=== PATIENT | female | born 1980 | race Caucasian/White ===

== ENCOUNTER 2017-10-31 05:37 | Inpatient (IN) | payer MEDICAID ==
[2017-10-31] MEDS ORDERED: Ondansetron 4 MG/2 ML SDV IVPUSH PRN (07:07)
[2017-10-31] MEDS ORDERED: Sodium Chloride 0.9% 10 ML Syringe FLUSH PRN (07:07)
[2017-10-31] MEDS ORDERED: Misoprostol 100 MCG Tab VAG PRN (07:07)
[2017-10-31] MEDS ORDERED: Acetaminophen 325 MG Tab PO PRN (07:07)
[2017-10-31] MEDS ORDERED: Nalbuphine 20 MG/1 ML Amp IVPUSH PRN (07:07)
--- NOTE | 2017-10-31 07:12 | PCM.LDHP ---
L&D History of Present Illness - General Date of Service: 10/31/17 Admit Problem/Dx: Patient Status Order with Admit Dx/Problem 10/31/17 07:09 Patient Status [ADT] Routine Admission Diagnosis/Problem Admission Diagnosis/Problem Gestational hypertension Source of Information: Patient History Limitations: Reports: No Limitations - History of Present Illness Introduction:: Patient is a 37 y/o at 37 0/7 wks gestation who presented today for planned IOL for preeclampsia. Has been doing well. No headaches, vision changes, RUQ pain. Only concern is that starting Tuesday she began to notice the start of a HSV outbreak. Has very typical symptoms for her. Believes still present. 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 (Approximate): Psychiatric History: Reports: Addiction - Infectious Disease History Infectious Disease History: Reports: Herpes Social & Family History - Tobacco Use Smoking Status *Q: Current Every Day Smoker - Alcohol Use Alcohol Use History: No - Recreational Drug Use Recreational Drug Use: Yes Drug Use in Last 12 Months: Yes Recreational Drug Type: Reports: Methamphetamine H&P Review of Systems - Review of Systems: Review Of Systems: See Below General: Reports: No Symptoms Pulmonary: Reports: No Symptoms Cardiovascular: Reports: No Symptoms Gastrointestinal: Reports: No Symptoms Genitourinary: Reports: Other (burning/tingling of HSV) Musculoskeletal: Reports: No Symptoms Psychiatric: Reports: No Symptoms Neurological: Reports: No Symptoms L&D Exam - Exam Exam: See Below - OB Specific Contraction Intensity: Irritability Movement: Active Heart Tones: Present Heart Tones per Min: 135 Heart Rate (FHR) Variability: Moderate (6-25 bmp) Presentation: Vertex - Exam General: Alert, Oriented, Cooperative Lungs: Clear to Auscultation, Normal Respiratory Effort Cardiovascular: Regular Rate, Regular Rhythm GI/Abdominal Exam: Soft, Non-Tender Genitourinary: Vaginal lesions (on left labia has findings of HSV lesion) Extremities: Normal Inspection Skin: Warm, Dry, Intact - Patient Data Result Diagrams: 10/31/17 07:20 - Problem List (1) 37 weeks gestation of SNOMED Code(s): 56090831 ICD Code: Z3A.37 - 37 WEEKS GESTATION OF Status: Acute Current Visit: Yes (2) induced hypertension SNOMED Code(s): 83134104 ICD Code: O13.9 - GESTATIONAL HTN W/O SIGNIFICANT PROTEINURIA, UNSP TRIMESTER Status: Acute Current Visit: Yes Qualifiers: Trimester: third trimester Qualified Code(s): O13.3 - Gestational [ -induced] hypertension without significant proteinuria, third trimester (3) Rh negative state in antepartum period SNOMED Code(s): 718579443 ICD Code: O09.899 - SUPERVISION OF OTHER HIGH RISK PREGNANCIES, UNSP TRIMESTER; Z67.91 - UNSPECIFIED BLOOD TYPE, RH NEGATIVE Status: Acute Current Visit: Yes (4) HSV infection Status: Acute Current Visit: Yes Problem List Initiated/Reviewed/Updated: Yes Orders Last 24hrs: Active Orders 24 hr Category Date Time Status Patient Status [ADT] Routine ADT 10/31/17 07:09 Ordered Activity as Tolerated [RC] PFP Care 10/31/17 07:07 Ordered Communication Order [RC] ASDIRECTED Care 10/31/17 07:07 Ordered Communication Order [RC] ASDIRECTED Care 10/31/17 07:07 Ordered Communication Order [RC] ASDIRECTED Care 10/31/17 07:07 Ordered Heart Tones [RC] ASDIRECTED Care 10/31/17 07:10 Ordered Monitoring [RC] INTERMITTENT Care 10/31/17 07:07 Ordered Notify Provider [RC] ASDIRECTED Care 10/31/17 07:07 Ordered Notify Provider [RC] PRN Care 10/31/17 07:07 Ordered Peripheral IV Care [RC] . DIRECTED Care 10/31/17 07:10 Ordered Up ad Shari [RC] ASDIRECTED Care 10/31/17 07:07 Ordered Vaginal Exam [RC] ASDIRECTED Care 10/31/17 07:07 Ordered Vital Signs [RC] ASDIRECTED Care 10/31/17 07:07 Ordered Vital Signs [RC] PER UNIT ROUTINE Care 10/31/17 07:07 Ordered Regular Diet [DIET] Diet 10/31/17 Breakfast Ordered ALANINE AMINOTRANSFERASE,ALT [CHEM] Routine Lab 10/31/17 07:07 Ordered ASPARTATE AMNIOTRANSFERASE,AST [CHEM] Routine Lab 10/31/17 07:07 Ordered CBC W/O DIFF,HEMOGRAM [HEME] Routine Lab 10/31/17 07:07 Ordered CREATININE W/GFR [CHEM] Routine Lab 10/31/17 07:07 Ordered DRUG SCREEN, URINE [URCHEM] Routine Lab 10/31/17 07:07 Ordered TYPE AND SCREEN [BBK] Routine Lab 10/31/17 07:07 Ordered Acetaminophen [Tylenol] Med 10/31/17 07:07 Ordered 650 mg PO Q4H PRN Lactated Ringers [Ringers, Lactated] 1,000 ml Med 10/31/17 07:15 Ordered IV ASDIRECTED Misoprostol [Cytotec] Med 10/31/17 07:07 Ordered 25 mcg VAG Q4H PRN Nalbuphine [Nubain] Med 10/31/17 07:07 Ordered 10 mg IVPUSH Q2H PRN Ondansetron [Zofran] Med 10/31/17 07:07 Ordered 4 mg IVPUSH Q4H PRN Oxytocin/Lactated Ringers [Pitocin in LR 10 Units/1,000 Med 10/31/17 07:15 Ordered ML] 10 unit in 1,000 ml IV .CONTINUOUS Sodium Chloride 0.9% [Saline Flush] Med 10/31/17 07:07 Ordered 10 ml FLUSH ASDIRECTED PRN Electronic Heart Tones Ext w TOCO [WOMSER] Oth 10/31/17 07:07 Ordered Routine Peripheral IV Insertion Adult [OM.PC] Routine Oth 10/31/17 07:07 Ordered Resuscitation Status Routine Resus Stat 10/31/17 07:07 Ordered Assessment/Plan Comment:: 37 y/o woman at 37 0/7 wks presented today for planned IOL for preeclampsia , however, has findings of active HSV outbreak. Given risks to baby will not proceed with IOL, but instead proceed with PLTCS. * CBC, T&S, RPR * AST, ALT, Creatinine * UDS * Cord segment on baby * NPO * Anecef OCTOR * Will assess baby blood type after delivery to see if Rhogam required Aliyah Reynolds MD
[2017-10-31] MEDS ORDERED: Misoprostol 25 MCG (1/4 of 100 MCG) Tab ONE (07:13)
[2017-10-31] MEDS ORDERED: Lactated Ringers 1,000 ML IV SCH ×2 (07:15→14:37)
[2017-10-31] MEDS ORDERED: Oxytocin/Lactated Ringers 10 UNIT/1,000 ML BAG IV SCH (07:15)
[2017-10-31] MEDS ORDERED: ceFAZolin 2 GM in Premix Bag 1 BAG IV ONE (07:24)
[2017-10-31] MEDS ORDERED: ceFAZolin 1 GM in Premix Bag 1 BAG IV ONE (07:24)
[2017-10-31] MEDS ORDERED: Metoclopramide 10 MG/2 ML SDV IVPUSH ONE (07:24)
[2017-10-31] MEDS ORDERED: Citric Acid/Sodium Citrate Solution 30 ML Cup PO ONE (07:24)
[2017-10-31] MEDS ORDERED: Nalbuphine 20 MG/ML 1 ML Syringe IVPUSH PRN (07:30)
--- NOTE | 2017-10-31 08:35 | PCM.OPNOTE ---
- General Post-Op/Procedure Note Date of Surgery/Procedure: 10/31/17 Operative Procedure(s): Primary Low Transverse Findings: Normal appearance of the uterus, fallopian tubes, and ovaries bilaterally. Baby boy with weight of 5 lbs 15 oz. Apgars of 7 & 8 Pre Op Diagnosis: 37 weeks gestation. Preeclampsia. HSV outbreak Post-Op Diagnosis: Same Anesthesia Technique: Spinal Primary Surgeon: Aliyah Reynolds Secondary Surgeon: Antoine Quiroga Anesthesia Provider: Ham Ramon Reason Telephone Instrument Supervisor Was Necessary: Patient with BMI of 49. Speed/safety of case Pathology: Cord blood collected. Placenta discarded Fluid Replacement, Intraop: 2,600 Output, Urine Amount: 106 EBL in mLs: 750 Complications: None Condition: Good Free Text/Narrative:: The risks, benefits, indications, potential complications, and alternatives were explained to the patient and informed consent obtained. After induction of anesthesia, the patient was placed in a supine position and then draped and prepped in the usual sterile manner. A Pfannenstiel incision was made and carried down through the subcutaneous tissue to the fascia. Fascial incision was made and extended transversely. The fascia was from the underlying rectus tissue superiorly and inferiorly. The peritoneum was identified and entered. Peritoneal incision was extended longitudinally. The utero-vesical peritoneal reflection was incised transversely and the bladder flap was bluntly freed from the lower uterine segment. A low transverse uterine incision was made sharply with a scalpel and extended bluntly in a cephalocaudad direction. A baby boy was delivered from a vertex presentation with aid of vacuum extraction. APGARS as above. After the umbilical cord was clamped and cut cord blood was obtained for evaluation. The placenta was removed intact and appeared normal. The uterus was exteriorized and cleared of clots. The uterine outline, tubes and ovaries appeared normal other than some slight bleeding from the fimbria of the left tube. The uterine incision was closed with running locked sutures of 0 Vicryl. Hemostasis was obtained with a second imbricating layer of 0 vicryl. Next, area of bleeding over the left fallopian tube was controlled with a suture of 4-0 monocryl placed in a figure of eight fashion. The uterus was then placed back into the abdomen. The infracolic gutters were cleared of blood clots. The fascia was then reapproximated with running sutures of 0 Vicryl. The sucutaneous tissue was irrigated with sterile warm normal saline, hemostasis obtained with cautery. This layer was also closed with a running 0 vicryl. The skin was reapproximated with running Subcuticular 4-0 monocryl sutures. Instrument, sponge, and needle counts were correct prior the abdominal closure and at the conclusion of the case.
[2017-10-31] MEDS ORDERED: Famotidine 20 MG/2 ML SDV IVPUSH ONE (08:44)
--- NOTE | 2017-10-31 09:20 | PCM.PREANE ---
Preanesthetic Assessment - Procedure Proposed Procedure: C Section - Anesthesia/Transfusion/Family Hx Anesthesia History: No Prior Anesthesia Family History of Anesthesia Reaction: No Transfusion History: No Prior Transfusion(s) Intubation History: Unknown - Review of Systems General: No Symptoms Pulmonary: Cough, Other (Smoker 1 pack per day right now) Cardiovascular: No Symptoms, Other ( inducted hypertension) Gastrointestinal: No Symptoms Neurological: Numbness, Tingling (Bilateral hands) Other: Reports: None - Physical Assessment NPO Status Date: 10/31/17 NPO Status Time: 06:30 Pulse: 98 O2 Sat by Pulse Oximetry: 96 Respiratory Rate: 20 Blood Pressure: 133/85 Height: 1.63 m Weight: 130.635 kg ASA Class: 2 Mental Status: Alert & Oriented x3 Airway Class: Mallampati = 1 Dentition: Reports: Missing Tooth/Teeth Thyro-Mental Finger Breadths: 3 Mouth Opening Finger Breadths: 3 ROM/Head Extension: Full Lungs: Clear to Auscultation, Normal Respiratory Effort Cardiovascular: Regular Rate, Regular Rhythm - Lab Values: Laboratory Last Values WBC 13.99 K/mm3 (3.98-10.04) H 10/31/17 07:20 RBC 4.40 M/mm3 (3.98-5.22) 10/31/17 07:20 Hgb 12.8 gm/L (11.2-15.7) 10/31/17 07:20 Hct 39.2 % (34.1-44.9) 10/31/17 07:20 MCV 89.1 fl (79.4-94.8) 10/31/17 07:20 MCH 29.1 pg (25.6-32.2) 10/31/17 07:20 MCHC 32.7 g/dl (32.2-35.5) 10/31/17 07:20 RDW Std Deviation 48.0 fL (36.4-46.3) H 10/31/17 07:20 Plt Count 297 K/mm3 (182-369) 10/31/17 07:20 MPV 8.9 fl (9.4-12.3) L 10/31/17 07:20 Creatinine 0.6 mg/dL (0.55-1.02) 10/31/17 07:20 Est Cr Clr Drug Dosing TNP 10/31/17 07:20 Estimated GFR (MDRD) > 60 mL/min (>60) 10/31/17 07:20 AST 12 U/L (15-37) L 10/31/17 07:20 ALT 22 U/L (14-59) 10/31/17 07:20 - Allergies Allergies/Adverse Reactions: Allergies Allergy/AdvReac Type Severity Reaction Status Date / Time leigha's wort Allergy Hives Uncoded 09/03/15 10:41 - Blood Blood Available: Yes Product(s) Available: PRBC - Acknowledgements Anesthesia Type Planned: Spinal Pt an Appropriate Candidate for the Planned Anesthesia: Yes Alternatives and Risks of Anesthesia Discussed w Pt/Guardian: Yes Pt/Guardian Understands and Agrees with Anesthesia Plan: Yes PreAnesthesia Questionnaire - Past Health History Medical/Surgical History: Denies 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: Psychiatric History: Reports: Addiction - Infectious Disease History Infectious Disease History: Reports: Herpes - SUBSTANCE USE Smoking Status *Q: Current Every Day Smoker Recreational Drug Use History: Yes Recreational Drug Type: Reports: Methamphetamine - HOME MEDS Home Medications: Home Meds PNV95/Ferrous Fumarate/FA [ Tablet] 1 each PO DAILY 09/29/17 [History] Acyclovir 400 mg PO TID 10/31/17 [History] - CURRENT (IN HOUSE) MEDS Current Meds: Current Medications Acetaminophen (Tylenol) 650 mg PO Q4H PRN PRN Reason: Pain (Mild 1-3) and fever Lactated Ringer's (Ringers, Lactated) 1,000 mls @ 40 mls/hr IV ASDIRECTED ALEXANDREA Last Admin: 10/31/17 09:09 Dose: 999 mls/hr Oxytocin/Lactated Ringer's (Pitocin In Lr 10 Units/1,000 Ml) 10 unit in 1,000 mls @ 500 mls/hr IV .CONTINUOUS ALEXANDREA Nalbuphine HCl (Nubain) 10 mg IVPUSH Q2H PRN PRN Reason: Pain (moderate 4-6) Ondansetron HCl (Zofran) 4 mg IVPUSH Q4H PRN PRN Reason: Nausea/Vomiting Sodium Chloride (Saline Flush) 10 ml FLUSH ASDIRECTED PRN PRN Reason: Keep Vein Open Discontinued Medications Citric Acid/Sodium Citrate (Bicitra Solution) 30 ml PO ONETIME ONE Stop: 10/31/17 07:25 Famotidine (Pepcid) 20 mg IVPUSH ONETIME ONE Stop: 10/31/17 08:45 Last Admin: 10/31/17 09:10 Dose: 20 mg Cefazolin Sodium/Dextrose 2 gm (/ Premix) 50 mls @ 100 mls/hr IV ONETIME ONE Stop: 10/31/17 07:53 Cefazolin Sodium/Dextrose 1 gm (/ Premix) 50 mls @ 100 mls/hr IV ONETIME ONE Stop: 10/31/17 07:53 Metoclopramide HCl (Reglan) 10 mg IVPUSH ONETIME ONE Stop: 10/31/17 07:25 Misoprostol (Cytotec) 25 mcg VAG Q4H PRN PRN Reason: cervical ripening Misoprostol (Cytotec) Confirm Administered Dose 25 mcg .ROUTE .STK-MED ONE Stop: 10/31/17 07:14 Nalbuphine HCl (Nubain) 10 mg IVPUSH Q2H PRN PRN Reason: Pain (moderate 4-6)
[2017-10-31] MEDS ORDERED: Metoclopramide 10 MG/2 ML SDV ONE (10:01)
[2017-10-31] MEDS ORDERED: Labetalol 100 MG/20 ML MDV IVPUSH ONE (10:03)
--- NOTE | 2017-10-31 10:26 | PCM.SN ---
- Free Text/Narrative Note: While awaiting surgery time patient with findings of severe range BP's. Order given for 20 mg IV labetalol. Will plan for IV magnesium as well for now findings of severe disease. Aliyah Reynolds MD
[2017-10-31] MEDS ORDERED: Citric Acid/Sodium Citrate Solution 30 ML Cup ONE (12:14)
[2017-10-31] MEDS ORDERED: Lidocaine 1% 2 ML ONE (12:24)
[2017-10-31] MEDS ORDERED: Bupivacaine 0.75%/D5W 2 ML Amp ONE (12:24)
[2017-10-31] MEDS ORDERED: Morphine PF 10 MG/10 ML SDV ONE (12:29)
[2017-10-31] MEDS ORDERED: Phenylephrine/Normal Saline 100 MCG/ML 10 ML Syringe ONE (12:41)
[2017-10-31] MEDS ORDERED: ceFAZolin 1 GM Vial ONE (12:42)
[2017-10-31] MEDS ORDERED: Ketorolac 30 MG/ML SDV ONE (12:55)
[2017-10-31] MEDS ORDERED: Oxytocin 10 Units/1 ML SDV ONE (12:55)
[2017-10-31] MEDS ORDERED: Lactated Ringers 1,000 ML ONE ×2 (13:17)
--- NOTE | 2017-10-31 13:40 | PCM.POSTAN ---
POST ANESTHESIA ASSESSMENT - MENTAL STATUS Mental Status: Alert, Oriented - VITAL SIGNS Pulse Rate: 99 SaO2: 94 Resp Rate: 19 Blood Pressure: 128/82 Temperature: 36.2 C - RESPIRATORY Respiratory Status: Respiratory Rate WNL, Airway Patent, O2 Saturation Stable, Supplemental Oxygen - CARDIOVASCULAR CV Status: Pulse Rate WNL, Blood Pressure Stable - GASTROINTESTINAL GI Status: No Symptoms - PAIN Pain Score: 0 - POST OP HYDRATION Hydration Status: Adequate & Stable - OBSERVATIONS Free Text/Narrative:: no anesthesia complications noted
[2017-10-31] MEDS ORDERED: Magnesium Sulfate/Water 40 GM/1,000 ML BAG IV SCH (14:37)
[2017-10-31] MEDS ORDERED: Ondansetron 4 MG/2 ML SDV IV PRN (14:37)
[2017-10-31] MEDS ORDERED: Calcium Gluconate 10% 1 GM/10 ML SDV IV PRN (14:37)
[2017-10-31] MEDS ORDERED: Lanolin 100% Cream 7 GM Tube TOP PRN (14:37)
[2017-10-31] MEDS ORDERED: Docusate Sodium 100 MG Cap PO PRN (14:37)
[2017-10-31] MEDS ORDERED: Naloxone 0.4 MG/ML SDV IVPUSH PRN (14:37)
[2017-10-31] MEDS: Nicotine 21 MG/24 Hr Patch TRDERM SCH (17:47)
[2017-10-31] MEDS: Ketorolac 30 MG/ML SDV IVPUSH SCH (19:52)
[2017-11-01] MEDS: Ketorolac 30 MG/ML SDV IVPUSH SCH ×2 (02:07→08:22)
--- NOTE | 2017-11-01 07:24 | PCM.PNPP ---
- General Info Date of Service: 11/01/17 Functional Status: Reports: Pain Controlled, Tolerating Diet, Ambulating - Review of Systems General: Reports: No Symptoms Pulmonary: Reports: No Symptoms Cardiovascular: Reports: No Symptoms Gastrointestinal: Reports: Abdominal Pain (managed with medications) Genitourinary: Reports: No Symptoms Musculoskeletal: Reports: No Symptoms Neurological: Reports: No Symptoms - Patient Data Vital Signs - Most Recent: Last Vital Signs Temp 36.6 C 11/01/17 03:47 Pulse 103 H 11/01/17 06:20 Resp 19 11/01/17 06:20 BP 115/63 11/01/17 06:20 Pulse Ox 95 11/01/17 06:20 Weight - Most Recent: 130.635 kg I&O - Last 24 Hours: Intake & Output 10/31/17 11/01/17 11/01/17 22:59 06:59 14:59 Intake Total 1700 1840 Output Total 950 1965 Balance 750 -125 Lab Results - Last 24 Hours: Laboratory Results - last 24 hr 10/31/17 10/31/17 10/31/17 Range/Units 07:20 07:20 07:20 WBC 13.99 H (3.98-10.04) K/mm3 RBC 4.40 (3.98-5.22) M/mm3 Hgb 12.8 (11.2-15.7) gm/L Hct 39.2 (34.1-44.9) % MCV 89.1 (79.4-94.8) fl MCH 29.1 (25.6-32.2) pg MCHC 32.7 (32.2-35.5) g/dl RDW Std Deviation 48.0 H (36.4-46.3) fL Plt Count 297 (182-369) K/mm3 MPV 8.9 L (9.4-12.3) fl Creatinine 0.6 (0.55-1.02) mg/dL Est Cr Clr Drug Dosing TNP Estimated GFR (MDRD) > 60 (>60) mL/min AST 12 L (15-37) U/L ALT 22 (14-59) U/L Urine Opiates Screen (NEGATIVE) Ur Buprenorphine Scrn (NEGATIVE) Ur Oxycodone Screen (NEGATIVE) Urine Methadone Screen (NEGATIVE) Ur Propoxyphene Screen (NEGATIVE) Ur Barbiturates Screen (NEGATIVE) Ur Tricyclics Screen (NEGATIVE) Ur Phencyclidine Scrn (NEGATIVE) Ur Amphetamine Screen (NEGATIVE) U Methamphetamines Scrn (NEGATIVE) U Benzodiazepines Scrn (NEGATIVE) U Cocaine Metab Screen (NEGATIVE) U Marijuana (THC) Screen (NEGATIVE) RPR (NONREACTIVE) Blood Type A NEGATIVE Gel Antibody Screen Negative 10/31/17 10/31/17 11/01/17 Range/Units 07:20 09:30 06:57 WBC 13.29 H (3.98-10.04) K/mm3 RBC 3.70 L (3.98-5.22) M/mm3 Hgb 10.9 L (11.2-15.7) gm/L Hct 33.3 L (34.1-44.9) % MCV 90.0 (79.4-94.8) fl MCH 29.5 (25.6-32.2) pg MCHC 32.7 (32.2-35.5) g/dl RDW Std Deviation 49.0 H (36.4-46.3) fL Plt Count 301 (182-369) K/mm3 MPV 8.9 L (9.4-12.3) fl Creatinine (0.55-1.02) mg/dL Est Cr Clr Drug Dosing Estimated GFR (MDRD) (>60) mL/min AST (15-37) U/L ALT (14-59) U/L Urine Opiates Screen Negative (NEGATIVE) Ur Buprenorphine Scrn Negative (NEGATIVE) Ur Oxycodone Screen Negative (NEGATIVE) Urine Methadone Screen Negative (NEGATIVE) Ur Propoxyphene Screen Negative (NEGATIVE) Ur Barbiturates Screen Negative (NEGATIVE) Ur Tricyclics Screen Negative (NEGATIVE) Ur Phencyclidine Scrn Negative (NEGATIVE) Ur Amphetamine Screen Negative (NEGATIVE) U Methamphetamines Scrn Negative (NEGATIVE) U Benzodiazepines Scrn Negative (NEGATIVE) U Cocaine Metab Screen Negative (NEGATIVE) U Marijuana (THC) Screen Negative (NEGATIVE) RPR Non-reactive (NONREACTIVE) Blood Type Gel Antibody Screen Med Orders - Current: Current Medications Calcium Gluconate (Calcium Gluconate) 1 gm IV ASDIRECTED PRN PRN Reason: respiratory distress Docusate Sodium (Colace) 100 mg PO Q12H PRN PRN Reason: Constipation Emollient Ointment (Lansinoh Hpa) 0 gm TOP ASDIRECTED PRN PRN Reason: Sore Nipples Ibuprofen (Motrin) 600 mg PO Q6H PRN PRN Reason: mild pain or fever Ketorolac Tromethamine (Toradol) 30 mg IVPUSH Q6H [facility] Stop: 11/01/17 07:46 Last Admin: 11/01/17 02:07 Dose: 30 mg Miscellaneous Information (Remove Patch) 1 ea TRDERM DAILY [facility] Naloxone HCl (Narcan) 0.1 mg IVPUSH SEECOMMENT PRN PRN Reason: Respiratory Depression Nicotine (Habitrol) 21 mg TRDERM DAILY [facility] Last Admin: 10/31/17 17:47 Dose: 21 mg Ondansetron HCl (Zofran) 4 mg IV Q8H PRN PRN Reason: Nausea/Vomiting Oxycodone/Acetaminophen (Percocet 325-5 Mg) 2 tab PO Q4H PRN PRN Reason: Pain (moderate 4-6) Discontinued Medications Acetaminophen (Tylenol) 650 mg PO Q4H PRN PRN Reason: Pain (Mild 1-3) and fever Bupivacaine HCl/Dextrose (Marcaine 0.75% Spinal) Confirm Administered Dose 2 ml .ROUTE .STK-MED ONE Stop: 10/31/17 12:25 Cefazolin Sodium (Ancef) Confirm Administered Dose 2 gm .ROUTE .STK-MED ONE Stop: 10/31/17 12:43 Citric Acid/Sodium Citrate (Bicitra Solution) 30 ml PO ONETIME ONE Stop: 10/31/17 07:25 Last Admin: 10/31/17 12:18 Dose: 30 ml Citric Acid/Sodium Citrate (Bicitra Solution) Confirm Administered Dose 30 ml .ROUTE .STK-MED ONE Stop: 10/31/17 12:15 Last Admin: 10/31/17 17:50 Dose: Not Given Famotidine (Pepcid) 20 mg IVPUSH ONETIME ONE Stop: 10/31/17 08:45 Last Admin: 10/31/17 09:10 Dose: 20 mg Lactated Ringer's (Ringers, Lactated) 1,000 mls @ 40 mls/hr IV ASDIRECTED [facility] Last Admin: 10/31/17 09:09 Dose: 999 mls/hr Oxytocin/Lactated Ringer's (Pitocin In Lr 10 Units/1,000 Ml) 10 unit in 1,000 mls @ 500 mls/hr IV .CONTINUOUS [facility] Cefazolin Sodium/Dextrose 2 gm (/ Premix) 50 mls @ 100 mls/hr IV ONETIME ONE Stop: 10/31/17 07:53 Last Admin: 10/31/17 17:50 Dose: Not Given Cefazolin Sodium/Dextrose 1 gm (/ Premix) 50 mls @ 100 mls/hr IV ONETIME ONE Stop: 10/31/17 07:53 Last Admin: 10/31/17 17:50 Dose: Not Given Lidocaine HCl (Xylocaine-Mpf 1%) Confirm Administered Dose 2 mls @ as directed .ROUTE .STK-MED ONE Stop: 10/31/17 12:25 Lactated Ringer's (Ringers, Lactated) Confirm Administered Dose 1,000 mls @ as directed .ROUTE .STK-MED ONE Stop: 10/31/17 13:18 Lactated Ringer's (Ringers, Lactated) Confirm Administered Dose 1,000 mls @ as directed .ROUTE .STK-MED ONE Stop: 10/31/17 13:18 Lactated Ringer's (Ringers, Lactated) 1,000 mls @ 75 mls/hr IV ASDIRECTED [facility] Magnesium Sulfate (Magnesium Sulfate 40 Gm In Water 1000 Ml) 40 gm in 1,000 mls @ 50 mls/hr IV ASDIRECTED [facility] Last Admin: 10/31/17 15:30 Dose: 50 mls/hr Ketorolac Tromethamine (Toradol) Confirm Administered Dose 30 mg .ROUTE .STK- MED ONE Stop: 10/31/17 12:56 Labetalol HCl (Normodyne) 20 mg IVPUSH ONETIME ONE; Protocol Stop: 10/31/17 10:04 Last Admin: 10/31/17 10:12 Dose: 20 mg Metoclopramide HCl (Reglan) 10 mg IVPUSH ONETIME ONE Stop: 10/31/17 07:25 Last Admin: 10/31/17 10:03 Dose: 10 mg Metoclopramide HCl (Reglan) Confirm Administered Dose 10 mg .ROUTE .STK-MED ONE Stop: 10/31/17 10:02 Last Admin: 10/31/17 10:17 Dose: Not Given Misoprostol (Cytotec) 25 mcg VAG Q4H PRN PRN Reason: cervical ripening Misoprostol (Cytotec) Confirm Administered Dose 25 mcg .ROUTE .STK-MED ONE Stop: 10/31/17 07:14 Last Admin: 10/31/17 10:17 Dose: Not Given Morphine Sulfate (Duramorph Pf) Confirm Administered Dose 10 mg .ROUTE .STK-MED ONE Stop: 10/31/17 12:30 Nalbuphine HCl (Nubain) 10 mg IVPUSH Q2H PRN PRN Reason: Pain (moderate 4-6) Nalbuphine HCl (Nubain) 10 mg IVPUSH Q2H PRN PRN Reason: Pain (moderate 4-6) Ondansetron HCl (Zofran) 4 mg IVPUSH Q4H PRN PRN Reason: Nausea/Vomiting Oxytocin (Pitocin) Confirm Administered Dose 10 unit .ROUTE .STK-MED ONE Stop: 10/31/17 12:56 Phenylephrine HCl (Phenylephrine In Ns 100 Mcg/Ml) Confirm Administered Dose 1 mg .ROUTE .STK-MED ONE Stop: 10/31/17 12:42 Sodium Chloride (Saline Flush) 10 ml FLUSH ASDIRECTED PRN PRN Reason: Keep Vein Open - Infant Interaction Disposition, : [place] in Room with Family Infant Interaction: Holding Feeding: Attempted ; Nursed Fair/Poor Support Person: Mother - Recovery Exam Fundal Tone: Firm Fundal Level: At Umbilicus Fundal Placement: Midline Lochia Amount: Small Lochia Color: Rubra/Red Perineum Description: Intact, Minimal Bruising/Swelling Episiotomy/Laceration: None Bladder Status: Indwelling Catheter in Place Urinary Elimination: Indwelling Catheter - Exam General: Alert, Oriented, Cooperative Lungs: Clear to Auscultation, Normal Respiratory Effort Cardiovascular: Regular Rate, Regular Rhythm GI/Abdominal Exam: Soft, Tender (appropriate post op ) Extremities: Normal Inspection Skin: Warm, Dry, Intact Wound/Incisions: Dressing Dry and Intact - Problem List & Annotations (1) 37 weeks gestation of SNOMED Code(s): 69360961 Code(s): Z3A.37 - 37 WEEKS GESTATION OF Status: Acute Current Visit: Yes (2) Rh negative state in antepartum period SNOMED Code(s): 724900740 Code(s): O09.899 - SUPERVISION OF OTHER HIGH RISK PREGNANCIES, UNSP TRIMESTER ; Z67.91 - UNSPECIFIED BLOOD TYPE, RH NEGATIVE Status: Acute Current Visit: Yes (3) HSV infection Status: Acute Current Visit: Yes (4) Severe preeclampsia SNOMED Code(s): 04978960 Code(s): O14.10 - SEVERE PRE-ECLAMPSIA, UNSPECIFIED TRIMESTER Status: Acute Current Visit: Yes Qualifiers: Trimester: third trimester Qualified Code(s): O14.13 - Severe pre-eclampsia , third trimester - Problem List Review Problem List Initiated/Reviewed/Updated: Yes - My Orders Last 24 Hours: My Active Orders 10/31/17 07:07 Resuscitation Status Routine 10/31/17 09:30 DRUG SCREEN, URINE [URCHEM] Routine 10/31/17 14:37 Activity as Tolerated [RC] .Routine Communication Order [RC] PER UNIT ROUTINE Communication Order [RC] PER UNIT ROUTINE Intake and Output [RC] QSHIFT Notify Provider Intake and Out [RC] ASDIRECTED RT Incentive Spirometry [RC] Q2HWA Vital Signs [RC] Q4HR Acetaminophen/oxyCODONE [Percocet 325-5 MG] 2 tab PO Q4H PRN Calcium Gluconate 1 gm IV ASDIRECTED PRN Docusate Sodium [Colace] 100 mg PO Q12H PRN Lanolin [Lansinoh HPA] See Dose Instructions TOP ASDIRECTED PRN Naloxone [Narcan] 0.1 mg IVPUSH SEECOMMENT PRN Ondansetron [Zofran] 4 mg IV Q8H PRN Assess Lochia [WOMSER] Per Unit Routine Assess Uterine Involution [WOMSER] Per Unit Routine Breast Pump [WOMSER] Per Unit Routine Deep Tendon Reflexes [WOMSER] ASDIRECTED Heat Therapy [OM.PC] Per Unit Routine Sequential Compression Device [OM.PC] Per Unit Routine 10/31/17 17:00 Nicotine [Habitrol] 21 mg TRDERM DAILY 10/31/17 19:45 Ketorolac [Toradol] 30 mg IVPUSH Q6H 10/31/17 Lunch Regular Diet [DIET] 11/01/17 06:57 RHOGAM, [RHIG WORKUP, ] [BBK] Routine 11/01/17 09:00 Remove Patch 1 ea TRDERM DAILY 11/01/17 13:37 Urinary Catheter Removal [RC] Per Unit Routine 11/01/17 13:45 Ibuprofen [Motrin] 600 mg PO Q6H PRN - Assessment Assessment:: 37 y/o G1 now P1001 POD#1 from [facility] at 37 0/7 wks. Had presented for IOL for gestational HTN/preeclampsia without severe features, but noted to have active HSV lesion and also on admission multiple severe range BP's. - Plan Plan:: Post op * CBC this AM with appropriate drop in Hb * Routine cares * Breast feeding Severe Preeclampsia * BP's mild/normal range on magnesium. Excellent UOP. Will discontinue magnesium later this AM and continue to watch closely Rh Negative * Baby Rh+, has received Rhogam Aliyah Reynolds MD
[2017-11-01] MEDS: Nicotine 21 MG/24 Hr Patch TRDERM SCH (09:28)
--- NOTE | 2017-11-01 10:19 | PCM48HPAN ---
Post Anesthesia Note - EVALUATION WITHIN 48HRS OF ANESTHETIC Vital Signs in Normal Range: Yes Patient Participated in Evaluation: Yes Respiratory Function Stable: Yes Airway Patent: Yes Cardiovascular Function Stable: Yes Hydration Status Stable: Yes Pain Control Satisfactory: Yes Nausea and Vomiting Control Satisfactory: Yes Mental Status Recovered: Yes
[2017-11-01] MEDS ORDERED: Ibuprofen 600 MG Tab PO PRN (13:45)
[2017-11-01] MEDS: Acetaminophen/oxyCODONE 325-5 MG Tab PO PRN ×3 (13:51→23:53)
--- NOTE | 2017-11-02 07:22 | PCM.PNPP ---
- General Info Date of Service: 11/02/17 Functional Status: Reports: Pain Controlled, Tolerating Diet, Ambulating, Urinating - Review of Systems General: Reports: No Symptoms Pulmonary: Reports: No Symptoms Cardiovascular: Reports: No Symptoms Gastrointestinal: Reports: Abdominal Pain (managed with medications ) Genitourinary: Reports: No Symptoms Neurological: Reports: No Symptoms - Patient Data Vital Signs - Most Recent: Last Vital Signs Temp 35.7 C 11/02/17 04:38 Pulse 108 H 11/02/17 04:30 Resp 20 11/02/17 04:38 BP 123/82 11/02/17 04:38 Pulse Ox 99 11/02/17 04:38 Weight - Most Recent: 130.635 kg I&O - Last 24 Hours: Intake & Output 11/01/17 11/02/17 11/02/17 22:59 06:59 14:59 Intake Total 300 Output Total 1350 950 Balance -1050 -950 Lab Results - Last 24 Hours: Laboratory Results - last 24 hr 11/01/17 Range/Units 06:57 Blood Type Cancelled Gel Antibody Screen Cancelled Screen 3 ros/5 flds - neg RhIG Candidate? Yes Rhogam Indicated Cancelled Med Orders - Current: Current Medications Calcium Gluconate (Calcium Gluconate) 1 gm IV ASDIRECTED PRN PRN Reason: respiratory distress Docusate Sodium (Colace) 100 mg PO Q12H PRN PRN Reason: Constipation Emollient Ointment (Lansinoh Hpa) 0 gm TOP ASDIRECTED PRN PRN Reason: Sore Nipples Ibuprofen (Motrin) 600 mg PO Q6H PRN PRN Reason: mild pain or fever Last Admin: 11/01/17 14:37 Dose: 600 mg Miscellaneous Information (Remove Patch) 1 ea TRDERM DAILY [facility] Last Admin: 11/01/17 09:29 Dose: 1 ea Naloxone HCl (Narcan) 0.1 mg IVPUSH SEECOMMENT PRN PRN Reason: Respiratory Depression Nicotine (Habitrol) 21 mg TRDERM DAILY [facility] Last Admin: 11/01/17 09:28 Dose: 21 mg Ondansetron HCl (Zofran) 4 mg IV Q8H PRN PRN Reason: Nausea/Vomiting Oxycodone/Acetaminophen (Percocet 325-5 Mg) 2 tab PO Q4H PRN PRN Reason: Pain (moderate 4-6) Last Admin: 11/01/17 23:53 Dose: 2 tab Discontinued Medications Acetaminophen (Tylenol) 650 mg PO Q4H PRN PRN Reason: Pain (Mild 1-3) and fever Bupivacaine HCl/Dextrose (Marcaine 0.75% Spinal) Confirm Administered Dose 2 ml .ROUTE .STK-MED ONE Stop: 10/31/17 12:25 Cefazolin Sodium (Ancef) Confirm Administered Dose 2 gm .ROUTE .STK-MED ONE Stop: 10/31/17 12:43 Citric Acid/Sodium Citrate (Bicitra Solution) 30 ml PO ONETIME ONE Stop: 10/31/17 07:25 Last Admin: 10/31/17 12:18 Dose: 30 ml Citric Acid/Sodium Citrate (Bicitra Solution) Confirm Administered Dose 30 ml .ROUTE .STK-MED ONE Stop: 10/31/17 12:15 Last Admin: 10/31/17 17:50 Dose: Not Given Famotidine (Pepcid) 20 mg IVPUSH ONETIME ONE Stop: 10/31/17 08:45 Last Admin: 10/31/17 09:10 Dose: 20 mg Lactated Ringer's (Ringers, Lactated) 1,000 mls @ 40 mls/hr IV ASDIRECTED [facility] Last Admin: 10/31/17 09:09 Dose: 999 mls/hr Oxytocin/Lactated Ringer's (Pitocin In Lr 10 Units/1,000 Ml) 10 unit in 1,000 mls @ 500 mls/hr IV .CONTINUOUS [facility] Cefazolin Sodium/Dextrose 2 gm (/ Premix) 50 mls @ 100 mls/hr IV ONETIME ONE Stop: 10/31/17 07:53 Last Admin: 10/31/17 17:50 Dose: Not Given Cefazolin Sodium/Dextrose 1 gm (/ Premix) 50 mls @ 100 mls/hr IV ONETIME ONE Stop: 10/31/17 07:53 Last Admin: 10/31/17 17:50 Dose: Not Given Lidocaine HCl (Xylocaine-Mpf 1%) Confirm Administered Dose 2 mls @ as directed .ROUTE .STK-MED ONE Stop: 10/31/17 12:25 Lactated Ringer's (Ringers, Lactated) Confirm Administered Dose 1,000 mls @ as directed .ROUTE .STK-MED ONE Stop: 10/31/17 13:18 Lactated Ringer's (Ringers, Lactated) Confirm Administered Dose 1,000 mls @ as directed .ROUTE .STK-MED ONE Stop: 10/31/17 13:18 Lactated Ringer's (Ringers, Lactated) 1,000 mls @ 75 mls/hr IV ASDIRECTED [facility] Magnesium Sulfate (Magnesium Sulfate 40 Gm In Water 1000 Ml) 40 gm in 1,000 mls @ 50 mls/hr IV ASDIRECTED [facility] Last Admin: 10/31/17 15:30 Dose: 50 mls/hr Ketorolac Tromethamine (Toradol) Confirm Administered Dose 30 mg .ROUTE .STK- MED ONE Stop: 10/31/17 12:56 Ketorolac Tromethamine (Toradol) 30 mg IVPUSH Q6H [facility] Stop: 11/01/17 07:46 Last Admin: 11/01/17 08:22 Dose: 30 mg Labetalol HCl (Normodyne) 20 mg IVPUSH ONETIME ONE; Protocol Stop: 10/31/17 10:04 Last Admin: 10/31/17 10:12 Dose: 20 mg Metoclopramide HCl (Reglan) 10 mg IVPUSH ONETIME ONE Stop: 10/31/17 07:25 Last Admin: 10/31/17 10:03 Dose: 10 mg Metoclopramide HCl (Reglan) Confirm Administered Dose 10 mg .ROUTE .STK-MED ONE Stop: 10/31/17 10:02 Last Admin: 10/31/17 10:17 Dose: Not Given Misoprostol (Cytotec) 25 mcg VAG Q4H PRN PRN Reason: cervical ripening Misoprostol (Cytotec) Confirm Administered Dose 25 mcg .ROUTE .STK-MED ONE Stop: 10/31/17 07:14 Last Admin: 10/31/17 10:17 Dose: Not Given Morphine Sulfate (Duramorph Pf) Confirm Administered Dose 10 mg .ROUTE .STK-MED ONE Stop: 10/31/17 12:30 Nalbuphine HCl (Nubain) 10 mg IVPUSH Q2H PRN PRN Reason: Pain (moderate 4-6) Nalbuphine HCl (Nubain) 10 mg IVPUSH Q2H PRN PRN Reason: Pain (moderate 4-6) Ondansetron HCl (Zofran) 4 mg IVPUSH Q4H PRN PRN Reason: Nausea/Vomiting Oxytocin (Pitocin) Confirm Administered Dose 10 unit .ROUTE .STK-MED ONE Stop: 10/31/17 12:56 Phenylephrine HCl (Phenylephrine In Ns 100 Mcg/Ml) Confirm Administered Dose 1 mg .ROUTE .STK-MED ONE Stop: 10/31/17 12:42 Sodium Chloride (Saline Flush) 10 ml FLUSH ASDIRECTED PRN PRN Reason: Keep Vein Open - Interaction Disposition, : in Room with Family Infant Interaction: Holding Infant Infant Feeding: Attempted ; Nursed Fair/Poor Support Person: Mother - Recovery Exam Fundal Tone: Firm Fundal Level: At Umbilicus Fundal Placement: Midline Lochia Amount: Scant Lochia Color: Rubra/Red Perineum Description: Intact, Minimal Bruising/Swelling Episiotomy/Laceration: None Bladder Status: Voiding Urinary Elimination: Indwelling Catheter - Exam General: Alert, Oriented, Cooperative Lungs: Clear to Auscultation, Normal Respiratory Effort Cardiovascular: Regular Rate, Regular Rhythm GI/Abdominal Exam: Soft, Tender (appropriate ) Extremities: Normal Inspection Skin: Warm, Dry, Intact Wound/Incisions: Healing Well, No Drainage - Problem List & Annotations (1) 37 weeks gestation of SNOMED Code(s): 79993298 Code(s): Z3A.37 - 37 WEEKS GESTATION OF Status: Acute Current Visit: Yes (2) Rh negative state in antepartum period SNOMED Code(s): 674178149 Code(s): O09.899 - SUPERVISION OF OTHER HIGH RISK PREGNANCIES, UNSP TRIMESTER ; Z67.91 - UNSPECIFIED BLOOD TYPE, RH NEGATIVE Status: Acute Current Visit: Yes (3) HSV infection Status: Acute Current Visit: Yes (4) Severe preeclampsia SNOMED Code(s): 35401489 Code(s): O14.10 - SEVERE PRE-ECLAMPSIA, UNSPECIFIED TRIMESTER Status: Acute Current Visit: Yes Qualifiers: Trimester: third trimester Qualified Code(s): O14.13 - Severe pre-eclampsia , third trimester - Problem List Review Problem List Initiated/Reviewed/Updated: Yes - My Orders Last 24 Hours: My Active Orders 11/01/17 09:00 Remove Patch 1 ea TRDERM DAILY 11/01/17 13:45 Ibuprofen [Motrin] 600 mg PO Q6H PRN 11/01/17 20:10 Vital Signs [RC] Q8H - Assessment Assessment:: 37 y/o G1 now P1001 POD#2 from [facility] at 37 0/7 wks. - Plan Plan:: Post op * Routine cares * Breast feeding Severe Preeclampsia * BP's mild/normal range. Will return for BP check in 1-2 weeks Rh Negative * Baby Rh+, has received Rhogam Aliyah Reynolds MD
--- NOTE | 2017-11-02 07:25 | PCM.DCSUM1 ---
Discharge Summary - Discharge Data Discharge Date: 11/02/17 Discharge Disposition: Home, Self-Care 01 Condition: Good - Discharge Diagnosis/Problem(s) (1) 37 weeks gestation of SNOMED Code(s): 54193182 ICD Code: Z3A.37 - 37 WEEKS GESTATION OF Status: Acute Current Visit: Yes (2) Rh negative state in antepartum period SNOMED Code(s): 675968254 ICD Code: O09.899 - SUPERVISION OF OTHER HIGH RISK PREGNANCIES, UNSP TRIMESTER; Z67.91 - UNSPECIFIED BLOOD TYPE, RH NEGATIVE Status: Acute Current Visit: Yes (3) HSV infection Status: Acute Current Visit: Yes (4) Severe preeclampsia SNOMED Code(s): 86822200 ICD Code: O14.10 - SEVERE PRE-ECLAMPSIA, UNSPECIFIED TRIMESTER Status: Acute Current Visit: Yes Qualifiers: Trimester: third trimester Qualified Code(s): O14.13 - Severe pre-eclampsia , third trimester - Patient Summary/Data Operative Procedure(s) Performed: Primary Low Transverse Complications: None Consults: None Recommended Follow-up Testing/Procedures: Follow up in 1-2 weeks for incision check / BP check Hospital Course: 37 y/o woman admitted at 37 weeks for planned IOL for preeclampsia. However, once admitted noted symptoms of HSV outbreak. This was confirmed on physical exam. Also, while awaiting surgery had more severe range BP's which were a new finding. She was taken for PLTCS and then maintained on magnesium for 24 hours . She did well with this. She otherwise had routine care and was discharged home on POD#2 - Patient Instructions Diet: Regular Diet as Tolerated Activity: No Lifting Over 10 Pounds Activity, Other: Pelvic Rest for 6 weeks Driving: Do Not Drive (While taking narcotics ) Showering/Bathing: May Shower, No Tub Bathing/Swimming Wound/Incision Care: Keep Operative Site/Wound Site Clean and Dry Notify Provider of: Fever, Increased Pain, Swelling and Redness, Drainage, Nausea and/or Vomiting - Discharge Plan Prescriptions/Med Rec: Nicotine [Nicotine Patch] 21 mg TD DAILY #28 patch Home Medications: Home Meds PNV95/Ferrous Fumarate/FA [ Tablet] 1 each PO DAILY 09/29/17 [History] Acetaminophen/oxyCODONE [Percocet 325-5 MG] 2 tab PO Q4H PRN tablet 11/01/17 [ Rx] Docusate Sodium [Colace] 100 mg PO Q12H PRN cap 11/01/17 [Rx] Ibuprofen [Motrin] 600 mg PO Q6H PRN tablet 11/01/17 [Rx] Nicotine [Nicotine Patch] 21 mg TD DAILY #28 patch 11/02/17 [Rx] Patient Handouts: Steps to Quit Smoking Referrals: Aliyah Reynolds MD [Primary Care Provider] - (1-2 weeks for BP check / incision check ) - Discharge Summary/Plan Comment DC Time >30 min.: No - Patient Data Vitals - Most Recent: Last Vital Signs Temp 35.7 C 11/02/17 04:38 Pulse 108 H 11/02/17 04:30 Resp 20 11/02/17 04:38 BP 123/82 11/02/17 04:38 Pulse Ox 99 11/02/17 04:38 Weight - Most Recent: 130.635 kg I&O - Last 24 hours: Intake & Output 11/01/17 11/02/17 11/02/17 22:59 06:59 14:59 Intake Total 300 Output Total 1350 950 Balance -1050 -950 Lab Results - Last 24 hrs: Laboratory Results - last 24 hr 11/01/17 Range/Units 06:57 Blood Type Cancelled Gel Antibody Screen Cancelled Screen 3 ros/5 flds - neg RhIG Candidate? Yes Rhogam Indicated Cancelled Med Orders - Current: Current Medications Calcium Gluconate (Calcium Gluconate) 1 gm IV ASDIRECTED PRN PRN Reason: respiratory distress Docusate Sodium (Colace) 100 mg PO Q12H PRN PRN Reason: Constipation Emollient Ointment (Lansinoh Hpa) 0 gm TOP ASDIRECTED PRN PRN Reason: Sore Nipples Ibuprofen (Motrin) 600 mg PO Q6H PRN PRN Reason: mild pain or fever Last Admin: 11/01/17 14:37 Dose: 600 mg Miscellaneous Information (Remove Patch) 1 ea TRDERM DAILY [facility] Last Admin: 11/01/17 09:29 Dose: 1 ea Naloxone HCl (Narcan) 0.1 mg IVPUSH SEECOMMENT PRN PRN Reason: Respiratory Depression Nicotine (Habitrol) 21 mg TRDERM DAILY [facility] Last Admin: 11/01/17 09:28 Dose: 21 mg Ondansetron HCl (Zofran) 4 mg IV Q8H PRN PRN Reason: Nausea/Vomiting Oxycodone/Acetaminophen (Percocet 325-5 Mg) 2 tab PO Q4H PRN PRN Reason: Pain (moderate 4-6) Last Admin: 11/01/17 23:53 Dose: 2 tab Discontinued Medications Acetaminophen (Tylenol) 650 mg PO Q4H PRN PRN Reason: Pain (Mild 1-3) and fever Bupivacaine HCl/Dextrose (Marcaine 0.75% Spinal) Confirm Administered Dose 2 ml .ROUTE .STK-MED ONE Stop: 10/31/17 12:25 Cefazolin Sodium (Ancef) Confirm Administered Dose 2 gm .ROUTE .STK-MED ONE Stop: 10/31/17 12:43 Citric Acid/Sodium Citrate (Bicitra Solution) 30 ml PO ONETIME ONE Stop: 10/31/17 07:25 Last Admin: 10/31/17 12:18 Dose: 30 ml Citric Acid/Sodium Citrate (Bicitra Solution) Confirm Administered Dose 30 ml .ROUTE .STK-MED ONE Stop: 10/31/17 12:15 Last Admin: 10/31/17 17:50 Dose: Not Given Famotidine (Pepcid) 20 mg IVPUSH ONETIME ONE Stop: 10/31/17 08:45 Last Admin: 10/31/17 09:10 Dose: 20 mg Lactated Ringer's (Ringers, Lactated) 1,000 mls @ 40 mls/hr IV ASDIRECTED [facility] Last Admin: 10/31/17 09:09 Dose: 999 mls/hr Oxytocin/Lactated Ringer's (Pitocin In Lr 10 Units/1,000 Ml) 10 unit in 1,000 mls @ 500 mls/hr IV .CONTINUOUS [facility] Cefazolin Sodium/Dextrose 2 gm (/ Premix) 50 mls @ 100 mls/hr IV ONETIME ONE Stop: 10/31/17 07:53 Last Admin: 10/31/17 17:50 Dose: Not Given Cefazolin Sodium/Dextrose 1 gm (/ Premix) 50 mls @ 100 mls/hr IV ONETIME ONE Stop: 10/31/17 07:53 Last Admin: 10/31/17 17:50 Dose: Not Given Lidocaine HCl (Xylocaine-Mpf 1%) Confirm Administered Dose 2 mls @ as directed .ROUTE .STK-MED ONE Stop: 10/31/17 12:25 Lactated Ringer's (Ringers, Lactated) Confirm Administered Dose 1,000 mls @ as directed .ROUTE .STK-MED ONE Stop: 10/31/17 13:18 Lactated Ringer's (Ringers, Lactated) Confirm Administered Dose 1,000 mls @ as directed .ROUTE .STK-MED ONE Stop: 10/31/17 13:18 Lactated Ringer's (Ringers, Lactated) 1,000 mls @ 75 mls/hr IV ASDIRECTED [facility] Magnesium Sulfate (Magnesium Sulfate 40 Gm In Water 1000 Ml) 40 gm in 1,000 mls @ 50 mls/hr IV ASDIRECTED [facility] Last Admin: 10/31/17 15:30 Dose: 50 mls/hr Ketorolac Tromethamine (Toradol) Confirm Administered Dose 30 mg .ROUTE .STK- MED ONE Stop: 10/31/17 12:56 Ketorolac Tromethamine (Toradol) 30 mg IVPUSH Q6H [facility] Stop: 11/01/17 07:46 Last Admin: 11/01/17 08:22 Dose: 30 mg Labetalol HCl (Normodyne) 20 mg IVPUSH ONETIME ONE; Protocol Stop: 10/31/17 10:04 Last Admin: 10/31/17 10:12 Dose: 20 mg Metoclopramide HCl (Reglan) 10 mg IVPUSH ONETIME ONE Stop: 10/31/17 07:25 Last Admin: 10/31/17 10:03 Dose: 10 mg Metoclopramide HCl (Reglan) Confirm Administered Dose 10 mg .ROUTE .STK-MED ONE Stop: 10/31/17 10:02 Last Admin: 10/31/17 10:17 Dose: Not Given Misoprostol (Cytotec) 25 mcg VAG Q4H PRN PRN Reason: cervical ripening Misoprostol (Cytotec) Confirm Administered Dose 25 mcg .ROUTE .STK-MED ONE Stop: 10/31/17 07:14 Last Admin: 10/31/17 10:17 Dose: Not Given Morphine Sulfate (Duramorph Pf) Confirm Administered Dose 10 mg .ROUTE .STK-MED ONE Stop: 10/31/17 12:30 Nalbuphine HCl (Nubain) 10 mg IVPUSH Q2H PRN PRN Reason: Pain (moderate 4-6) Nalbuphine HCl (Nubain) 10 mg IVPUSH Q2H PRN PRN Reason: Pain (moderate 4-6) Ondansetron HCl (Zofran) 4 mg IVPUSH Q4H PRN PRN Reason: Nausea/Vomiting Oxytocin (Pitocin) Confirm Administered Dose 10 unit .ROUTE .STK-MED ONE Stop: 10/31/17 12:56 Phenylephrine HCl (Phenylephrine In Ns 100 Mcg/Ml) Confirm Administered Dose 1 mg .ROUTE .STK-MED ONE Stop: 10/31/17 12:42 Sodium Chloride (Saline Flush) 10 ml FLUSH ASDIRECTED PRN PRN Reason: Keep Vein Open
[2017-11-02] MEDS: Acetaminophen/oxyCODONE 325-5 MG Tab PO PRN (08:21)
[2017-11-02 10:54] VITALS: BP 135/96
[2017-11-02] MEDS: Nicotine 21 MG/24 Hr Patch TRDERM SCH (10:57)
== END 2017-11-02 10:45 | disposition home or self-care (01) | DRG 765 ==
LOC: JD.OB 07:04 → OBSVTOIN 12:54 → JD.OB 12:54
PROVIDERS: ADMIT Obstetrics & Gynecology; ATTEND Obstetrics & Gynecology
PROC: 10D00Z1 Extraction of Products of Conception, Low, Open Approach (ICD-10-PCS; principal; 2017-10-31)
PROC: 6A550ZT Pheresis of Cord Blood Stem Cells, Single (ICD-10-PCS; 2017-10-31)
PROC: 3E0234Z Introduction of Serum, Toxoid and Vaccine into Muscle, Percutaneous Approach (ICD-10-PCS; 2017-11-01)
DX: O14.14 Severe pre-eclampsia complicating childbirth (principal); O98.32 Other infections with a predominantly sexual mode of transmission complicating childbirth; Z37.0 Single live birth; A60.00 Herpesviral infection of urogenital system, unspecified; O13.4 Gestational [pregnancy-induced] hypertension without significant proteinuria, complicating childbirth; O99.334 Smoking (tobacco) complicating childbirth; F17.210 Nicotine dependence, cigarettes, uncomplicated; Z3A.37 37 weeks gestation of pregnancy; O26.893 Other specified pregnancy related conditions, third trimester; Z67.11 Type A blood, Rh negative; Z88.8 Allergy status to other drugs, medicaments and biological substances
CPT/HCPCS: 01961; 36415; 59025; 80306; 82565; 84450; 84460; 85027; 85461; 86592; 86850; 86900; 86901; A9270-GY; J0690; J1885; J2001; J2270; J2590; J2765; J2790; J3475; J7120